=== PATIENT | female | born 1940 | race Caucasian/White ===

== ENCOUNTER 2019-02-14 07:30 | Outpatient (CLI) | payer MEDICARE, BC ==
[2019-02-14] MEDS ORDERED: Iopamidol 370 76% 100 ML VIAL ONE (09:00)
--- NOTE | 2019-02-14 14:13 | CT ---
CT ABDOMEN AND PELVIS WITH IV AND ORAL CONTRAST WITH MULTIPLANAR RECONSTRUCTION: INDICATIONS: Right lower quadrant pain. FINDINGS: Images through the lung bases show a focal area of parenchymal opacity in the anterior right middle l obe, imaged on the very first image. This measures approximately 2 cm. It could represent focal atele ctasis or focal infiltrate. The liver, spleen and pancreas are unremarkable. The adrenal glands are normal. The kidneys are unremarkable. The urinary bladder is mildly distended and unremarkable. Small bowel loops are of normal caliber. The appendix appears normal. A large amount of stool is seen throughout the colon, indicating constipation. Luminal narrowing is n oted in the sigmoid, of uncertain significance. Consider further evaluation with colonoscopy. Aorta o f normal caliber. Images through the pelvis show an unremarkable uterus and adnexae. There may be a s mall amount of fluid in the cul-de-sac. Osseous structures are unremarkable with degenerative changes in the lumbar spine and scoliotic curvature. IMPRESSION: 1. On the very first images through the lung base, there is a focal opacity in the anterior right mid dle lobe, incompletely evaluated. this could represent focal atelectasis or infiltrate and recommend clinical correlation. Elective follow-up chest CT is suggested. 2. Prominent stool throughout the colon to the level of the sigmoid where there is evidence of lumina l narrowing of uncertain significance. Consider further evaluation with colonoscopy. 3. Question small amount of fluid in the cul-de-sac. POS: [facility]
== END 2019-02-14 07:31 | disposition home or self-care (01) ==
LOC: SCSCT 07:30
PROVIDERS: ATTEND Physician Assistant Medical
DX: R10.31 Right lower quadrant pain (principal)
CPT/HCPCS: 74177; 82565; Q9967

== ENCOUNTER 2025-02-24 10:53 | Outpatient (CLI) | payer MEDICARE | END 2025-02-24 10:54 | disposition home or self-care (01) | LOC: SCSBT 10:53 | PROVIDERS: ATTEND Internal Medicine | DX: M81.0 Age-related osteoporosis without current pathological fracture (principal); Z78.0 Asymptomatic menopausal state | CPT/HCPCS: 77080 ==

== ENCOUNTER 2025-04-28 20:52 | Inpatient (IN) | payer MEDICARE ==
[2025-04-28 23:21] VITALS: BMI 20.7
[2025-04-28] MEDS ORDERED: Calcium Carbonate 500 MG ChewTAB PO PRN (23:28)
[2025-04-28] MEDS ORDERED: Acetaminophen 325 MG TAB PO PRN (23:28)
[2025-04-28] MEDS ORDERED: Guaifenesin DM 100-10/5 ML UDCUP PO PRN (23:28)
[2025-04-28] MEDS ORDERED: Ondansetron PF 4 MG/2 ML Vial IVP PRN (23:28)
[2025-04-29 04:18] LABS: #Basophils 0.07 10x3/uL (0.0-0.2); #Eosinophils 0.51 10x3/uL (0.0-0.7); #Monocytes 0.73 10x3/uL (0.11-0.59); #Neutrophils 2.22 10x3/uL (1.40-6.50); %Basophils 1.4 % (0.0-1.0); %Eosinophils 10.4 % (0.0-10.0); %Lymphocytes 27.8 % (21.0-51.0); %Monocytes 14.9 % (0.0-10.0); %Neutrophils 45.3 % (42.0-75.0); Hematocrit 35.0 % (36.0-47.0); Hemoglobin 11.3 g/dL (12.0-16.0); Mean Corpuscular Hemoglobin 31.0 pg (27.0-31.0); Mean Corpuscular Volume 95.9 fL (78.0-98.0); Platelet Count 196 10x3/uL (130-400); Red Blood Cell (RBC) Count 3.65 mill/uL (4.20-5.40); White Blood Cell (WBC) Count 4.90 10x3/uL (4.8-10.8)
[2025-04-29 04:42] LABS: Anion Gap 13 mmol/L (10-20); BUN (Urea Nitrogen) 21 mg/dL (9.8-20.1); Calc. Creatinine Clearance 42 mL/min (70-130); Calcium 9.0 mg/dL (7.8-10.44); Carbon Dioxide 24 mmol/L (23-31); Chloride 108 mmol/L (98-107); Glucose 91 mg/dL (83-110); Potassium 3.7 mmol/L (3.5-5.1); Sodium 141 mmol/L (136-145)
[2025-04-29] MEDS: Ezetimibe 10 MG TAB PO SCH (09:11)
[2025-04-29] MEDS: Enoxaparin 40 MG (0.4 mL) SYRINGE SC SCH (09:12)
[2025-04-30 03:57] LABS: #Basophils 0.06 10x3/uL (0.0-0.2); #Eosinophils 0.62 10x3/uL (0.0-0.7); #Monocytes 0.76 10x3/uL (0.11-0.59); #Neutrophils 2.65 10x3/uL (1.40-6.50); %Basophils 1.1 % (0.0-1.0); %Eosinophils 11.2 % (0.0-10.0); %Lymphocytes 26.3 % (21.0-51.0); %Monocytes 13.7 % (0.0-10.0); %Neutrophils 47.5 % (42.0-75.0); Hematocrit 36.6 % (36.0-47.0); Hemoglobin 12.0 g/dL (12.0-16.0); Mean Corpuscular Hemoglobin 31.3 pg (27.0-31.0); Mean Corpuscular Volume 95.3 fL (78.0-98.0); Platelet Count 210 10x3/uL (130-400); Red Blood Cell (RBC) Count 3.84 mill/uL (4.20-5.40); White Blood Cell (WBC) Count 5.56 10x3/uL (4.8-10.8)
[2025-04-30 04:40] LABS: Anion Gap 14 mmol/L (10-20); BUN (Urea Nitrogen) 22 mg/dL (9.8-20.1); Calc. Creatinine Clearance 35 mL/min (70-130); Calcium 9.0 mg/dL (7.8-10.44); Carbon Dioxide 25 mmol/L (23-31); Chloride 108 mmol/L (98-107); Glucose 92 mg/dL (83-110); Potassium 3.5 mmol/L (3.5-5.1); Sodium 143 mmol/L (136-145)
[2025-04-30] MEDS ORDERED: Iopamidol 370 76% 100 ML VIAL ONE (10:27)
[2025-04-30 16:29] VITALS: BP 125/73; TEMP 98
[2025-04-30] MEDS ORDERED: levETIRAcetam 500 MG TAB PO SCH (21:00)
== END 2025-04-30 19:11 | disposition home or self-care (01) | DRG 55 ==
LOC: 2SE 20:54 → OBSVTOIN 23:28
PROVIDERS: ADMIT Family Medicine; ATTEND Internal Medicine
DX: D32.0 Benign neoplasm of cerebral meninges (principal); E78.5 Hyperlipidemia, unspecified; R29.810 Facial weakness; R47.81 Slurred speech; I10 Essential (primary) hypertension; Z85.3 Personal history of malignant neoplasm of breast; Z98.891 History of uterine scar from previous surgery; Z98.890 Other specified postprocedural states; Z79.899 Other long term (current) drug therapy
CPT/HCPCS: 36415; 70470; 70553; 71260; 74177; 76376; 80048; 85025; J1650; Q9967